=== PATIENT | male | born 1965 | race African-American/Black ===

== ENCOUNTER 2017-01-20 17:08 | Emergency (ER) | payer BC ==
[2017-01-20 14:57] LABS: BASOPHILS 0.4 %; BASOPHILS ABSOLUTE 0.04 10/3/uL (0.0-0.16); EOSINOPHILS ABSOLUTE 0.22 10/3/uL (0.0-0.53); ER CBC TAT 0 Hrs 07 Mins; HEMATOCRIT 46.6 % (40.0-51.0); HEMOGLOBIN 15.6 g/dL (13.6-17.8); IMMATURE GRANULOCYTES 0.4 %; IMMATURE GRANULOCYTES ABSOLUTE 0.04 10/3/uL (0.0-0.11); LYMPHOCYTES 36.5 %; LYMPHOCYTES ABSOLUTE 4.03 10/3/uL (0.67-4.30); MEAN CORPUS HGB CONC 33.5 g/dL (32.0-36.0); MEAN CORPUSCULAR VOLUME 80.6 fL (80-100); MEAN PLATELET VOLUME 9.6 fL (9.2-13.0); MONOCYTES ABSOLUTE 0.77 10/3/uL (0.21-1.20); NEUTROPHILS 53.7 %; NEUTROPHILS ABSOLUTE 5.94 10/3/uL (2.02-8.40); PLATELET COUNT 241 10/3/uL (150-400); RBC DISTRIBUTION WIDTH 14.6 % (12.0-16.0); RED CELL COUNT 5.78 10/6/uL (4.7-6.1)
[2017-01-20 14:59] LABS: MANUAL DIFF NO %
[2017-01-20 15:16] LABS: BUN (BLOOD UREA NITROGEN) 11 MG/DL (6-23); CALCIUM, SERUM 9.3 MG/DL (8.5-10.4); CHLORIDE, SERUM 103 MMOL/L (96-112); CREATININE 0.85 MG/DL (0.70-1.30); GFR AFRICAN AMERICAN 118 ML/MIN (>=60); GFR NON AFRICAN AMERICAN 102 ML/MIN (>=60); GLUCOSE, SERUM 104 MG/DL (60-99); POTASSIUM, SERUM 3.9 MMOL/L (3.5-5.3); SGOT(AST) 18 U/L (5-40); SGPT(ALT) 33 U/L (5-65); SODIUM, SERUM 138 MMOL/L (135-148); TROPONIN I <0.02 NG/ML (<0.05)
[2017-01-20 15:17] LABS: ALKALINE PHOSPHATASE 125 U/L (45-117); CO2 (CARBON DIOXIDE) 34 MMOL/L (24-34); TOTAL BILIRUBIN 1.4 MG/DL (0-1.2)
[~2017-01-20 17:08] MED LIST: EXFORGE HC4 PO
[2017-02-20] MEDS ORDERED: EXFORGE1 TA3 PO (09:51)
== END 2017-01-20 17:12 | disposition home or self-care (01) ==
LOC: ER 17:08
PROVIDERS: Emergency Medicine
DX: R42 Dizziness and giddiness (principal); J32.9 Chronic sinusitis, unspecified; I10 Essential (primary) hypertension; Z91.013 Allergy to seafood; Z79.899 Other long term (current) drug therapy
CPT/HCPCS: 70450; 80053; 84484; 85025; 93005; 99284; A9270-GY

== ENCOUNTER 2017-03-02 06:37 | Day surgery (SDC) | payer BC ==
[2017-03-01 16:36] LABS: HEMATOCRIT 47.9 % (40.0-51.0); HEMOGLOBIN 16.2 g/dL (13.6-17.8)
[2017-03-01 16:49] LABS: BUN (BLOOD UREA NITROGEN) 12 MG/DL (6-23); CALCIUM, SERUM 9.6 MG/DL (8.5-10.4); CHLORIDE, SERUM 102 MMOL/L (96-112); CO2 (CARBON DIOXIDE) 29 MMOL/L (24-34); CREATININE 0.95 MG/DL (0.70-1.30); GFR AFRICAN AMERICAN 108 ML/MIN (>=60); GFR NON AFRICAN AMERICAN 93 ML/MIN (>=60); GLUCOSE, SERUM 122 MG/DL (60-99); POTASSIUM, SERUM 3.5 MMOL/L (3.5-5.3); SODIUM, SERUM 140 MMOL/L (135-148)
--- NOTE | ~2017-03-02 | OP ---
Record Of Operation [facility] [address] [place]. [address] NAME: EULA MALIN : 67 STATUS : [place] [facility] [place] PAT#: [id number] AGE: 51 ADM/REG DATE : 03/02/17 MR#: [id number] REPORT SERV DATE: 03/02/17 DICTATED BY: VICKI FABIAN DATE: 03/02/17 REPORT STATUS : Draft TRANSCRIBED BY: ANGELA DATE: 03/02/17 DATE OF PROCEDURE: 03/02/2017 PREOPERATIVE DIAGNOSIS: Bilateral true vocal cord polyps. POSTOPERATIVE DIAGNOSIS: Bilateral true vocal cord polyps. PROCEDURE: Microdirect laryngoscopy with excision of bilateral true vocal cord polyps. ANESTHESIA: General. COMPLICATIONS: None. COUNTS: All counts were correct following the procedure. ESTIMATED BLOOD LOSS: Minimal. PREOPERATIVE INFORMED CONSENT: We discussed the risks and benefits of the surgery including, but not limited to bleeding, infection, possible recurrence of the polyps, possible scarring of the vocal folds resulting in temporary or permanent hoarseness, and consent is on the chart. PROCEDURE IN DETAIL: The patient was brought to the operative suite, and placed on the operating room table in supine position. General endotracheal anesthesia was initiated without incident. The patient's head and neck were cleaned, prepped and draped in the usual sterile fashion. The patient's bite guard was placed on the upper teeth. A Dedo laryngoscope was carefully inserted in the oral cavity and advanced into the supraglottic larynx just above the vocal folds. Following this, the patient was suspended from the Barrios stand using the suspension apparatus. Then, a 0 degree Mckeon aquilino was placed through the laryngoscope, and used to take pictures of the lesion in question. There was two pedunculated polypoid lesions larger on the left than on the right, the junction between the anterior and middle third of the vocal folds. Microscope was then brought into the field. Under direct vision with the microscope using microlaryngeal cup forceps and micro laryngeal scissors, the stalk of the lesion was transected on the left and right vocal fold lesions, these polyps were removed en bloc, and sent for permanent section in formalin. Bleeding was controlled using topical Adrenalin on pledgets. The patient was then taken out of the suspension. The teeth were noted to be in preoperative condition. The patient was awakened from anesthesia, and taken to the recovery room in stable condition. NAIN/ANGELA Vicki Fabian M.D. Record Of Operation [address] [place]. [address] NAME: EULA MALIN : 67 STATUS : REG [facility] [place] PAT#: [id number] AGE: 51 ADM/REG DATE : 03/02/17 MR#: [id number] REPORT SERV DATE: 03/02/17 DICTATED BY: VICKI FABIAN DATE: 03/02/17 REPORT STATUS : Draft TRANSCRIBED BY: ANGELA DATE: 03/02/17 / [id number] CC: Lonnie Adrian M.D.
[~2017-03-02 06:37] MED LIST changes: +EXFORGE1 TA3 PO
== END 2017-03-02 23:59 | disposition home or self-care (01) ==
LOC: MSC 06:37
PROVIDERS: Otolaryngology
PROC: 0CBT8ZX Excision of Right Vocal Cord, Via Natural or Artificial Opening Endoscopic, Diagnostic (ICD-10-PCS; 2017-03-02)
PROC: 0CBV8ZX Excision of Left Vocal Cord, Via Natural or Artificial Opening Endoscopic, Diagnostic (ICD-10-PCS; principal; 2017-03-02 08:15)
DX: J38.7 Other diseases of larynx (principal); I10 Essential (primary) hypertension; J45.909 Unspecified asthma, uncomplicated; K21.9 Gastro-esophageal reflux disease without esophagitis; E66.01 Morbid (severe) obesity due to excess calories; Z68.41 Body mass index [BMI] 40.0-44.9, adult; Z98.890 Other specified postprocedural states; Z91.013 Allergy to seafood; Z79.899 Other long term (current) drug therapy
CPT/HCPCS: 80048; 85014; 85018; 88305; A9270-GY; J0330; J0690; J2250; J2370; J2405; J3010